=== PATIENT | male | born 1990 | race Caucasian/White ===

== ENCOUNTER → 2019-04-12 14:47 | Outpatient (CLI) | payer OTHER, SELFPAY ==
[2019-04-01 11:39] VITALS: BMI 32.6
--- NOTE | 2019-04-12 14:49 | ECHOD_ITS ---
Reason For Study: Murmur Procedure This was a 2D Doppler, Color Flow transthoracic echocardiogram. The exam was of adequate technical quality. Exam performed in department. Left Ventricle Normal LV size. Left ventricular systolic function is normal. The estimated ejection fraction is 65 %. No evidence for diastolic dysfunction. No regional wall motion abnormalities noted. Right Ventricle Normal RV size. Normal systolic function. Atria Normal left atrium. Normal right atrium. No doppler evidence for ASD. Mitral Valve There is no mitral annular calcification. Normal mitral valve. Trivial mitral valve insufficiency. Tricuspid Valve Normal tricuspid valve. Trivial tricuspid valve insufficiency. Aortic Valve Bicuspid aortic valve. Pulmonic Valve The pulmonic valve is not well visualized. Trivial pulmonic valve insufficiency. Great Vessels Mildly dilated aortic root. Pericardium/Pleural No pericardial effusion. MMode/2D Measurements & Calculations LVIDd: 4.8 cm IVSd: 1.0 cm LVOT diam: 2.3 cm LVIDs: 2.5 cm LVPWd: 1.1 cm LVOT area: 4.2 cm2 RVDd: 3.9 cm FS: 47.2 % Ao root diam: 4.4 cm LAV(MOD-bp): 64.0 ml LA A4 area: 20.1 cm2 LA dimension: 4.0 cm LAV(MOD-bp) Indexed: 25.5 ml/m2 LAV(MOD-sp2): 61.2 ml LAV(MOD-sp4): 53.5 ml RA A4 area: 20.5 cm2 Time Measurements MV dec time: 0.22 sec Doppler Measurements & Calculations MV E max gamaliel: 77.7 cm/sec Lat Peak E' Gamaliel: 16.5 cm/sec Med Peak E' Gamaliel: 10.6 cm/sec MV A max gamaliel: 53.7 cm/sec E/E' lat: 4.7 E/E' med: 7.3 MV E/A: 1.4 MV V2 max: 77.6 cm/sec MV P1/2t max gamaliel: 78.2 cm/sec Ao V2 max: 146.4 cm/sec MV max P.4 mmHg MV P1/2t: 60.6 msec Ao max P.6 mmHg MV V2 mean: 41.4 cm/sec MV dec slope: 377.9 cm/sec2 Ao V2 mean: 101.5 cm/sec MV mean P.81 mmHg Ao mean P.8 mmHg MV V2 VTI: 24.2 cm MVA(P1/2t): 3.6 cm2 Ao V2 VTI: 29.3 cm MVA(VTI): 3.6 cm2 LEONEL(I,D): 3.0 cm2 LEONEL(V,D): 3.1 cm2 LV V1 max: 105.7 cm/sec SV(LVOT): 88.0 ml PA V2 max: 109.8 cm/sec LV V1 max P.5 mmHg LV V1 mean P.1 mmHg LV V1 mean: 66.5 cm/sec LV V1 VTI: 20.8 cm Interpretation Summary Left ventricular systolic function is normal. The estimated ejection fraction is 65 %. Trivial mitral valve insufficiency. Trivial tricuspid valve insufficiency. Bicuspid aortic valve. Trivial pulmonic valve insufficiency. Mildly dilated aortic root. No evidence for diastolic dysfunction. Ordering Physician: Kirit Oliveros Referring Physician: Navneet Bernal Performed By: Tera Polo RCS
== END ==
PROVIDERS: Family Provider Family Medicine; PCP Family Medicine; Referring Provider Internal Medicine Cardiovascular Disease; Visit Provider Internal Medicine Cardiovascular Disease
DX: I71.2 Thoracic aortic aneurysm, without rupture (principal); Q23.1 Congenital insufficiency of aortic valve
CPT/HCPCS: 93306

== ENCOUNTER → 2019-09-17 15:34 | Outpatient (CLI) | payer OTHER, SELFPAY ==
[2019-04-01 11:39] VITALS: BMI 32.6
[2019-09-17 17:28] LABS: Hematocrit 49.8 % (40-54); Hemoglobin 16.9 g/dL (13.0-16.5); Mean Corp Hgb Conc 33.9 g/dL (32-36); Mean Corpuscular Hgb 29.4 pg (27.0-32.0); Mean Corpuscular Volume 86.6 fL (80-94); POSITIVE DIFFERENTIAL YES; Platelet Count 370 K/mm3 (150-450); RBC Distribution Width CV 12.7 % (11.6-14.6); RBC Distribution Width SD 39.8 fl (35.1-43.9); Red Blood Count 5.75 M/mm3 (4.6-6.2); White Blood Count 23.1 K/mm3 (4.4-11.0)
[2019-09-17 17:38] LABS: ALB/GLOB Ratio 1.1 RATIO (0.9-2.4); AST(SGOT) 23 U/L (15-37); Alanine Aminotransfer ALT/SGPT 49 U/L (16-61); Albumin, Serum 4.7 g/dL (3.2-5.0); Alkaline Phosphatase 87 U/L (45-117); Anion Gap 7 (5-15); BUN 14 mg/dL (7-18); BUN/Creat Ratio 12.5 RATIO (10-20); CRP 4.65 mg/L (0.0-3.0); Calcium,Total 9.5 mg/dL (8.5-10.1); Chloride 104 mmol/L (98-107); Creatinine, Serum 1.12 mg/dL (0.70-1.30); EST Glomerular Filtration Rate 83 mL/min (>60); Est Glom Filt Rate - Afr Amer 100 mL/min (>60); Globulin 4.3 g/dL (2.2-4.2); Glucose 80 mg/dL (74-106); Potassium 3.8 mmol/L (3.5-5.1); Sodium Level 137 mmol/L (136-145)
[2019-09-17 17:43] LABS: Erythrocyte Sedimentation Rate 12 mm/hr (0-15)
[2019-09-17 18:04] LABS: Differential Indicated MANUAL DIFF
[2019-09-17 18:05] LABS: Lymphocyte 15 % (19-41); Monocyte 5 % (0-10); Neutrophil-Band 1 % (0-5); Neutrophil-Segmented 79 % (47-70); Platelet Estimate ADEQUATE (ADEQ); Red Cell Morphology NORM C+C NORMAL (NORM C&C); Total Cells Counted 100 (MANUAL DIFF)
[2019-09-17 18:06] LABS: Absolute Lymphocyte Count 3.47 X10^3/uL (0.83-4.51); Absolute Neutrophil Count 18.5 X10^3/uL (2.0-7.7)
[2019-09-20 20:02] LABS: t-Transglutaminase IgA <2 U/mL (0-3)
== END ==
PROVIDERS: PCP Family Medicine; Referring Provider Family Medicine; Visit Provider Family Medicine
DX: K52.9 Noninfective gastroenteritis and colitis, unspecified (principal)
CPT/HCPCS: 36415; 80053; 83516; 85025; 85652; 86140

== ENCOUNTER → 2019-09-30 12:48 | Outpatient (CLI) | payer OTHER, SELFPAY ==
[2019-04-01 11:39] VITALS: BMI 32.6
== END ==
PROVIDERS: PCP Family Medicine; Referring Provider Surgery; Visit Provider Surgery
DX: R19.7 Diarrhea, unspecified (principal)
CPT/HCPCS: 82274; 83630; 87177; 87209; 87493; 87506

== ENCOUNTER → 2019-10-04 12:51 | Outpatient (CLI) | payer OTHER, SELFPAY ==
[2019-10-04 12:35] VITALS: BMI 32.8
[2019-10-04 13:39] LABS: Absolute Lymphocyte Count 4.14 X10^3/uL (0.83-4.51); Absolute Neutrophil Count 4.4 X10^3/uL (2.0-7.7); Basophil# 0.06 X10^3/uL; Basophil% 0.6 % (0-1); Eosinophil# 0.33 X10^3/uL; Eosinophils% 3.3 % (0-5); Hematocrit 48.5 % (40-54); Hemoglobin 16.2 g/dL (13.0-16.5); Lymphocyte # 4.14 X10^3/ul (4.0); Lymphocyte % 41.4 % (19-41); Mean Corp Hgb Conc 33.4 g/dL (32-36); Mean Corpuscular Hgb 29.1 pg (27.0-32.0); Mean Corpuscular Volume 87.1 fL (80-94); Mean Platelet Vol. 9.7 fl (6.2-12.0); NRBC Flagged by Analyzer 0 % (0-5); Neutrophil # 4.36 X10^3/uL (2.7-7.7); Neutrophil % 43.5 % (47-70); Platelet Count 333 K/mm3 (150-450); RBC Distribution Width CV 12.6 % (11.6-14.6); RBC Distribution Width SD 39.6 fl (35.1-43.9); Red Blood Count 5.57 M/mm3 (4.6-6.2)
== END ==
PROVIDERS: PCP Family Medicine; Referring Provider Surgery; Visit Provider Surgery
DX: D72.829 Elevated white blood cell count, unspecified (principal)
CPT/HCPCS: 36415; 85025

== ENCOUNTER 2019-10-07 05:31 | Day surgery (SDC) | payer OTHER, SELFPAY ==
[2019-10-04 12:35] VITALS: BMI 32.8
[2019-10-07] VITALS (7 sets, daily range): BP systolic 92–135; BP diastolic 62–100; PULSE 64–72; RESP 16; TEMP 36.6–36.7; O2SAT 95–100; BMI 32.2
--- NOTE | 2019-10-07 06:04 | PCM.HP.BLA ---
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 Don Chakraborty MD) Diarrhea (Acute) Thoracic aortic aneurysm without rupture (Chronic) Bicuspid aortic valve (Chronic) Diarrhea (Acute) Surgical History (Updated 10/04/19 @ 12:35 by Thelma Ruelas) History of adenoidectomy (Acute) History of tympanostomy tube placement (Resolved) Family History Grandfather Myocardial infarction Social History (Updated 10/04/19 @ 12:[address] Don Chakraborty MD) Smoking Status: Never smoker alcohol intake: never substance use type: does not use caffeine: Yes Type: carbonated beverages Number of servings: 4 HPI HPI HPI: HELENE BYRD, is a 29 M who presents to the office today for surgical consultation regarding intractable diarrhea. The patient is referred by Dr. Navneet Bernal written copy of my surgical consult recommendations will be returned to him. The patient forever is had somewhat irritable type bowels with rapid movement of stool after eating. Over the past month though it is been much more severe. He denies fever chills or sweats. He was thinking he might be gluten intolerant. Dr. Bernal did check laboratory which was not remarkable. On September 29 the patient also had stool analysis with no enteric pathogens. No fecal WBCs. C. difficile was negative. He has not been exposed anyone with Covid-19 who is knowledge. He has not noticed any bright red blood per rectum or melena. No unexpected weight loss. He does have a bicuspid aortic valve. Dr. Kirit Oliveros is currently caring for him with that. According to those notes he does not require antibiotic prophylaxis for interventions. As of September 17, 2019 his white blood cell count was 23.1 with a hemoglobin of 16.9 hematocrit 49.8 platelet count 3 and 70,000. 79% segs. ESR was 12. Liver function tests were normal. C-reactive protein was 4.65. There is no family history of colon polyps or colon cancer or Crohn's disease or ulcerative colitis. The patient has not had any abdominal pain. He has not had any unexpected weight loss. He has not had any previous abdominal surgery. 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[employer] [facility] HPI HPI HPI: HELENE BYRD, is a 29 M who presents to the office today for ROS General General: No weight change, appetite, fatigue, colon cancer, breast cancer or weakness HEENT HEENT: No difficulty swallowing, eye injury, eye surgery, swollen glands or hoarseness Endo Endocrine: No thyroid disease, diabetes mellitus, thyroid cancer, Hair loss, heat intolerance or cold intolerance Skin Skin: Yes rash; no changing moles Breast Breast: No left breast lump, right breast lump, nipple discharge, breast pain, abnormal mammogram, abnormal US or breast enlargement Musc Musculoskeletal: No back problems, arthritis, rheumatoid arthritis, gout or joint pain Cardio Cardiovascular: No murmur, pacemaker, heart disease, atrial fibrillation, high blood pressure, heart attack, heart stent, palpitations, shortness of breat with exertion or chest pain Additional Details: bicuspid aortic valve Psych Psychiatric: No depression, anxiety or hearing voices Resp Respiratory: No shortness of breath, No sleep apnea, No cough, No COPD, No asthma, No emphysema, No wheezing Gastro Gastrointestinal: No abdominal pain, No nausea or vomiting, Yes diarrhea, No constipation, No blood in stool, No acid reflux, No hemorrhoids, No ulcers, No gallbladder problem, No black,tarry stools Zechariah Hematologic: No blood thinners, No blood disorders, No bleeding, No anemia, No blood clots Neuro Neurologic: No system reviewed and no additional complaints, except as docu, No as per HPI, No abnormal walking, No abnormal hearing, No abnormal movements, No abnormal speech, No behavioral changes, No burning sensations, No confusion, No seizure-like activity, No unsteadiness, No dizziness, No localized weakness, No frequent falls, No headache(s), No lack of coordination, No loss of vision, No memory loss, No numbness, No other visual disturbances, No radiating pain, No restless legs, No sensory deficit, No fainting, No tingling, No tremor(s), No weakness, No other Exam Const General: cooperative, healthy appearing, comfortable, no acute distress Nutritional Appearance: obese Orientation: alert, awake, oriented x3 HENMT Head: normal to inspection Chest Breast Palpation: No nipple discharge Resp Effort & Inspection: normal respiratory effort Auscultation: clear to auscultation bilaterally Cardio Rate: regular rate Rhythm: regular rhythm Heart Sounds: no murmurs GI Palpation: soft, no hepatosplenomegaly Auscultation: normal bowel sounds Neuro Cognition: normal cognition Extrem General: no calf tenderness Psych Affect: normal affect Assessment & Plan Problems 1. Diarrhea, unspecified type R19.7 Plan Diarrhea of undetermined etiology Leukocytosis of undetermined etiology Celiac panel was negative I recommend a colonoscopy with possible biopsy or polypectomy as indicated. He has had an opportunity to ask and have questions answered. We will schedule and try to expedite his care. I would be in dissipating random colonic biopsies. We will try to intubate the ileocecal valve. If that is not determinant then might consider fecal fat analysis for possible pancreatic insufficiency; might additionally consider fasting gastrin level and urine 5 HIAA and VIP and Chromagen A levels He is on an opportunity to ask and have questions answered. He is aware that we are during the Covid-19 pandemic. He is aware that the [facility] is currently reporting a low local incidence. We will schedule and expedite. I appreciate the opportunity of assisting with his surgical care. Cc: Dr. Navneet Chakraborty M.D., F.A.C.S. Orders Orders: Colonoscopy Today Ova and Parasites [id number] 09/30/19 R19.7 CDIFF (Molecular) 09/30/19 R19.7 ENTERIC PATHOGEN PANEL STOOL 09/30/19 R19.7 Stool Occult Blood iFOB 09/30/19 R19.7 Stool Lactoferrin/WBC 09/30/19 R19.7 CBC W/Diff, Automated Today D72.829 Coding Level of Care Code 82027 Diagnoses Diarrhea, unspecified type R19.7 ??Diarrhea type: unspecified type 10/04/19 1250 <Electronically signed by Don Chakraborty MD> Date Don Chakraborty MD I have re-examined the patient. There are no clinical changes since date of exam. Stool analysis panel all negative for enteric pathogens. His peripheral CBC demonstrates normalization of his white blood cell count. Don Chakraborty M.D., F.A.C.S. Procedure Criteria Procedure Type: Elective COVID Risk Discussion: The surgeon/proceduralist and patient have discussed in detail the risk of exposure to and/or potential harm posed by the COVID-19 virus with having a surgery/procedure at this time versus the risk of delaying the surgery/procedure. It is not possible to know either the risk of delaying the surgery or procedure or chance of getting an infection with perfect accuracy, but a joint decision was made between the patient and the surgeon/proceduralist to proceed at this time with the scheduled surgery/procedure as indicated on the consent form.
[2019-10-07] MEDS: Lactated Ringers 1,000 ML 100 ML IV (06:11)
--- NOTE | 2019-10-07 06:30 | COLBX_PTH ---
PATIENT: HELENE BYRD LOC: EN U#:[id number] AGE/SX: 29/M ROOM: RE10/07/[address]: Dr. Don Chakraborty MD : 1990 BED: DIS: 10/07/2019 SPEC #: [id number] RECD: 10/07/19 10:14 STATUS: JET BISMARK #: [id number] ALFREDITO: 10/07/19 06:[address]: Don Chakraborty DEPT: SURGICAL PATHOLOGY RECD BY: Kenna Shen ENTERED: 10/07/19 10:24 SP TYPE: COLON BX ANKIT DR: Dr. Navneet Bernal MD Tissues: A - COLON BIOPSY B - Descending colon Procedures: Surgery Specimen Level IV HEADER OPERATION: Colonoscopy (MOD) PRE-OP DIAGNOSIS: Diarrhea TISSUE SUBMITTED: A - Random colon biopsies, B - Descending colon polyp MICROSCOPIC DIAGNOSIS A. Colon, random biopsy: Focal recent mucosal hemorrhage. No evidence of colitis. B. Descending colon polyp, biopsy: Tubular adenoma. AM:dale 10/08/19 MICROSCOPIC DESCRIPTION Slides are reviewed. GROSS DESCRIPTION A - Received in fixative is one container labeled with the patient's name and designated random colon biopsy. The specimen consists of multiple irregular fragments of light pastrana soft tissue that in aggregate measure 1.5 x 0.5 x 0.1 cm. The specimen is totally submitted in one cassette. B - Received in fixative is one container labeled with the patient's name and designated descending colon polyp. The specimen consists of a piece of pastrana-pink polyp measuring 0.6 x 0.6 x 0.3 cm. The specimen is totally submitted in one cassette. / SJ:dale 10/07/19 TC:5 CPT: 68868 x2
--- NOTE | 2019-10-07 07:15 | OP.COLON_ITS ---
Patient Name: Bruce Olvera Procedure Date: 10/07/2019 6:03 AM Date of : 1990 Age: 29 Procedure: Colonoscopy Indications: Clinically significant diarrhea of unexplained origin Providers: Don Chakraborty MD Referring MD: Navneet Bernal Md Medicines: Midazolam 7 mg IV, Meperidine 150 mg IV, Diphenhydramine 25 mg IV Patient Profile: Last Colonoscopy: none. The patient's first colonoscopy is today. Complications: No immediate complications. Procedure: Pre-Anesthesia Assessment: - Prior to the procedure, a History and Physical was performed, and patient medications and allergies were reviewed. The patient's tolerance of previous anesthesia was also reviewed. The risks and benefits of the procedure and the sedation options and risks were discussed with the patient. All questions were answered, and informed consent was obtained. Prior Anticoagulants: The patient has taken no previous anticoagulant or antiplatelet agents. ASA Grade Assessment: II - A patient with mild systemic disease. After reviewing the risks and benefits, the patient was deemed in satisfactory condition to undergo the procedure. After I obtained informed consent, the scope was passed under direct vision. Throughout the procedure, the patient's blood pressure, pulse, and oxygen saturations were monitored continuously. The pediatric colonoscope was introduced through the anus and advanced to the cecum, identified by appendiceal orifice and ileocecal valve. The colonoscopy was performed without difficulty. The patient tolerated the procedure well. The quality of the bowel preparation was good. The ileocecal valve and the appendiceal orifice were photographed. Demerol 100mg and versed 4mg given via IV which seemed the to infiltrate. New IV placed and demerol 50mg and versed 3mg and benadryl 25mg given through new IV Moderate Sedation: Moderate (conscious) sedation was administered by the endoscopy nurse and supervised by the endoscopist. The following parameters were monitored: oxygen saturation, heart rate, blood pressure, and response to care. Total physician intraservice time was 15 minutes. Scope In: 6:43:22 AM Scope Withdrawal Time 0 hours 15 minutes 38 seconds Scope Out: 7:03:21 AM Total Procedure Duration Time 0 hours 19 minutes 59 seconds Findings: Hemorrhoids were found on perianal exam. Prostate normal A 8 mm polyp was found in the proximal descending colon. The polyp was semi-pedunculated. The polyp was removed with a hot snare. Resection and retrieval were complete. The colon (entire examined portion) appeared normal. Biopsies for histology were taken with a cold forceps from the entire colon for evaluation of microscopic colitis. An attempt was made to intubate the ileocecal valve but despite multiple attempts the acute angulation and closed valve prevented this. Cecum very well visualized and completely normal. Impression: - Hemorrhoids found on perianal exam. - One 8 mm polyp in the proximal descending colon, removed with a hot snare. Resected and retrieved. - The entire examined colon is normal. Biopsied. Recommendation: - Discharge patient to home. - Resume previous diet. - Continue present medications. - Repeat colonoscopy in 5 years for surveillance. - Telephone my office for pathology results in 1 week. Procedure Code(s): --- Professional --- 80900, Colonoscopy, flexible; with removal of tumor(s), polyp(s), or other lesion(s) by snare technique 60118, 59, Colonoscopy, flexible; with biopsy, single or multiple 68869, 59, Moderate sedation services provided by the same physician or other qualified health residential care facility manager performing the diagnostic or therapeutic service that the sedation supports, requiring the presence of an independent trained observer to assist in the monitoring of the patient's level of consciousness and physiological status; initial 15 minutes of intraservice time, patient age 5 years or older Diagnosis Code(s): --- Professional --- K64.9, Unspecified hemorrhoids D12.4, Benign neoplasm of descending colon R19.7, Diarrhea, unspecified CPT copyright 2017 [employer]. All rights reserved. The codes documented in this report are preliminary and upon drop count associate review may be revised to meet current compliance requirements. Don Chakraborty MD 10/07/2019 7:14:54 AM This report has been signed electronically. Number of Addenda: 0 Note Initiated On: 10/07/2019 6:03 AM
--- NOTE | 2019-10-07 07:15 | OP.CCLET_ITS ---
10/07/2019 Navneet Bernal Md Re : Colonoscopy procedure for Bruce Olvera Dear Dolores This procedure was performed on September. My impressions and recommendations are as follows: Impressions : - Hemorrhoids found on perianal exam. - One 8 mm polyp in the proximal descending colon, removed with a hot snare. Resected and retrieved. - The entire examined colon is normal. Biopsied. Recommendations : - Discharge patient to home. - Resume previous diet. - Continue present medications. - Repeat colonoscopy in 5 years for surveillance. - Telephone my office for pathology results in 1 week. My findings are described in the full procedure note, which is enclosed. If I can be of further assistance, please feel free to contact me at Doctor phone number(s): Work: . Sincerely, Don Chakraborty MD 10/07/2019 7:14:54 AM This report has been signed electronically.
== END 2019-10-07 07:50 | disposition home or self-care (01) ==
LOC: EN 05:32 → AC 05:33
PROVIDERS: Anesthesiology; PCP Family Medicine; Referring Provider Family Medicine; Visit Provider Surgery
PROC: 0DJD8ZZ Inspection of Lower Intestinal Tract, Via Natural or Artificial Opening Endoscopic (ICD-10-PCS; CPT 45378; principal; 2019-10-07 06:25)
DX: K52.9 Noninfective gastroenteritis and colitis, unspecified (principal); Z11.59 Encounter for screening for other viral diseases; D12.4 Benign neoplasm of descending colon; K64.9 Unspecified hemorrhoids; Q23.1 Congenital insufficiency of aortic valve
CPT/HCPCS: 45380; 45385; 87635; 88305; 99152; 99153; G2023; J7120; U0003

== ENCOUNTER → 2020-04-11 13:50 | Outpatient (CLI) | payer OTHER, SELFPAY ==
[2020-04-05 15:04] VITALS: BMI 32.5
--- NOTE | 2020-04-11 13:52 | US_ITS ---
STUDY: SCROTUM ULTRASOUND REASON FOR EXAM: Male, 29 years old. LEFT TESTICULAR DISCOMFORT 1-2 WEEKS TECHNIQUE: Ultrasound evaluation of the scrotum was performed with color Doppler and static skinner-scale imaging. COMPARISON: None. FINDINGS: RIGHT TESTICLE INTRATESTICULAR: There is a normal size of the right testicle. The right testicle measures 4.4 x 2.8 x 2.3 cm. There is a homogenous echotexture. There is normal arterial and normal venous vascularity. There is no demonstrated right testicular mass or cyst. EXTRATESTICULAR: The epididymis is normal in size. The epididymis head measures 0.9 x 1.8 x 1.1 cm. There is normal vascularity of the epididymis. There is a well-defined cystic structure within the epididymis, without internal echoes, consistent with an epididymal cyst. There is no demonstrated hydrocele. There is no demonstrated varicocele. There is no demonstrated extratesticular mass or cyst. LEFT TESTICLE INTRATESTICULAR: There is a normal size of the left testicle. The left testicle measures 4.4 x 2.9 x 2.4 cm. There is a homogenous echotexture. There is normal arterial and normal venous vascularity. There is no demonstrated left testicular mass or cyst. EXTRATESTICULAR: The epididymis is normal in size. The epididymis head measures 1.1 x 1.6 x 1.1 cm. There is normal vascularity of the epididymis. There is no demonstrated epididymal cystic structure. There is no demonstrated hydrocele. There is no demonstrated varicocele. There is no demonstrated extratesticular mass or cyst. US/Testicular with Arterial Flow IMPRESSION: Normal bilateral testicles. Electronically Signed: Bernabe Silva MD at 16:48 EST Tel , Service support ,
== END ==
PROVIDERS: PCP Family Medicine; Visit Provider Family Medicine
DX: N50.812 Left testicular pain (principal)
CPT/HCPCS: 76870; 93976

== ENCOUNTER → 2020-04-14 13:42 | Outpatient (CLI) | payer OTHER, SELFPAY ==
[2020-04-05 15:04] VITALS: BMI 32.5
--- NOTE | 2020-04-14 13:44 | ECHOD_ITS ---
Reason For Study: CONGENITAL HEART DISEASE Procedure This was a 2D Doppler, Color Flow transthoracic echocardiogram. Exam performed in department. Left Ventricle Normal LV size. Left ventricular systolic function is normal. The estimated ejection fraction is 65 %. No evidence for diastolic dysfunction. No regional wall motion abnormalities noted. Right Ventricle Normal RV size. Normal systolic function. Atria Normal left atrium. Normal right atrium. No doppler evidence for ASD. Mitral Valve There is no mitral annular calcification. Normal mitral valve. Trivial mitral valve insufficiency. Tricuspid Valve Normal tricuspid valve. Trivial tricuspid valve insufficiency. Aortic Valve Bicuspid aortic valve. Pulmonic Valve The pulmonic valve is not well visualized. Trivial pulmonic valve insufficiency. Great Vessels Mildly dilated aortic root. Pericardium/Pleural No pericardial effusion. MMode/2D Measurements & Calculations LVIDd: 5.1 cm IVSd: 1.0 cm LVOT diam: 2.3 cm LVIDs: 2.9 cm LVPWd: 1.0 cm LVOT area: 4.3 cm2 RVDd: 3.3 cm FS: 42.5 % Ao root diam: 4.5 cm LAV(MOD-bp): 48.8 ml LA A4 area: 17.8 cm2 LAV(MOD-bp) Indexed: 19.5 ml/m2 LAV(MOD-sp2): 51.8 ml LAV(MOD-sp4): 43.1 ml LA dimension(2D): 3.9 cm RA A4 area: 18.7 cm2 Time Measurements MV dec time: 0.18 sec Doppler Measurements & Calculations MV E max gamaliel: 72.0 cm/sec Lat Peak E' Gamaliel: 18.8 cm/sec Med Peak E' Gamaliel: 11.4 cm/sec MV A max gamaliel: 64.7 cm/sec E/E' lat: 3.8 E/E' med: 6.3 MV E/A: 1.1 Ao V2 max: 132.4 cm/sec LV V1 max: 94.3 cm/sec SV(LVOT): 82.8 ml Ao max P.0 mmHg LV V1 max P.6 mmHg Ao V2 mean: 93.6 cm/sec LV V1 mean P.8 mmHg Ao mean P.9 mmHg LV V1 mean: 63.2 cm/sec Ao V2 VTI: 25.9 cm LV V1 VTI: 19.2 cm LEONEL(I,D): 3.2 cm2 LEONEL(V,D): 3.1 cm2 PA V2 max: 108.3 cm/sec Interpretation Summary Left ventricular systolic function is normal. The estimated ejection fraction is 65 %. Trivial mitral valve insufficiency. Trivial tricuspid valve insufficiency. Bicuspid aortic valve. Trivial pulmonic valve insufficiency. Mildly dilated aortic root. No evidence for diastolic dysfunction. Ordering Physician: Kirit Oliveros Referring Physician: Navneet Bernal Performed By: Thelma Chandler, REHANA, RVT
== END ==
PROVIDERS: PCP Family Medicine; Referring Provider Internal Medicine Cardiovascular Disease; Visit Provider Internal Medicine Cardiovascular Disease
DX: Q23.1 Congenital insufficiency of aortic valve (principal); I71.2 Thoracic aortic aneurysm, without rupture
CPT/HCPCS: 93306

== ENCOUNTER 2021-06-29 13:10 | Emergency (ER) | payer OTHER, SELFPAY ==
[2021-06-29 13:13] VITALS: BP 140/93; PULSE 96; RESP 16; TEMP 36.4; O2SAT 97; BMI 32.5
--- NOTE | 2021-06-29 13:14 | NURSING ---
NO OLD EKGS
--- NOTE | 2021-06-29 13:20 | EKG12_ITS ---
Test Reason : SYNCOPE Blood Pressure : / mmHG Vent. Rate : 091 BPM Atrial Rate : 091 BPM P-R Int : 178 ms QRS Dur : 092 ms QT Int : 338 ms P-R-T Axes : 030 012 008 degrees QTc Int : 415 ms Normal sinus rhythm Normal ECG Confirmed by TAE KAPOOR, MARITO ([id number]), supervising film or videotape editor MAXIM FERRIS ([id number]) on 07/04/2021 10:40:33 AM Referred By: SUSI Confirmed By:MARITO STRONG MD
--- NOTE | 2021-06-29 13:25 | EDS_ITS ---
HPI <ESTEBAN Tavera - Last Filed: 06/29/21 16:00> History of Present Illness Chief Complaint: Syncope Narrative Narrative: 30-year-old male with history of bicuspid aortic valve, presents to the emergency department after a syncopal episode, altered mental status. Patient does have what his would call fuzzy head after he gets up from sleep. It takes him time to get a bearing on his surroundings as well as remember what is happening. Per his , the patient was standing today, had an immediate syncopal episode, he was altered, not knowing who she was, patient now is alert and oriented however he does not remember what happened, he does not remember yesterday and states that he is still feeling fuzzy in his head. Patient denies any chest pain nausea vomiting. Patient denies any dizziness prior. Denies any recent illnesses, fever chills nausea vomiting. Patient does get echocardiograms every year, recently had a normal echocardiogram. Patient's last cardiac exam was in March 2021. [facility] <ESTEBAN Tavera - Last Filed: 06/29/21 16:00> [facility] Medical History (Updated 06/29/21 @ 16:00 by ESTEBAN Tavera) Bicuspid aortic valve Diarrhea Diarrhea Thoracic aortic aneurysm without rupture Home Medications NK 03/29/19 [History Last Taken Unknown] Allergy/AdvReac Type Severity Reaction Status Date / Time No Known Allergies Allergy Verified 06/29/21 13:13 Family History Grandfather Myocardial infarction Surgical History History of adenoidectomy History of tympanostomy tube placement Social History Smoking Status: Never smoker alcohol intake: never substance use type: does not use caffeine: Yes Type: carbonated beverages Number of servings: 4 ROS <ESTEBAN Tavera - Last Filed: 06/29/21 16:00> ROS ED ROS Narrative Constitutional: Negative for fever, chills, weight loss, weakness Eyes: Negative for vision loss, vision change, double vision ENT: Negative for any sore throat, ear pain, congestion Cardiovascular: Negative for any chest pain, tightness, palpitations, racing heartbeat Respiratory: Negative for any cough, sputum production, hemoptysis, shortness of breath, shortness of breath on exertion, orthopnea Gastrointestinal: Negative for any abdominal pain, nausea, vomiting, diarrhea, constipation, blood in stool, blood in vomit : Negative for any urinary frequency, incontinence, dysuria, retention, blood in urine Muscle skeletal: Negative for any muscle joint pain, stiffness, myalgias, arthralgias, neck pain, back pain Neurological: Negative for any headache, dizziness, numbness or tingling. Positive for syncope, altered mental status Skin: Negative for any rashes, lumps, itching, abrasions, lacerations Psychiatric: Negative for any depression, anxiety, stress, suicidal ideation, homicidal ideation Hematologic: Negative for any easy bruising, excessive bruising, easy bleeding Allergies: Negative for any eczema, hives, rash EXAM <ESTEBAN Tavera - Last Filed: 06/29/21 16:00> Physical Exam Narrative Exam Narrative: Vital signs reviewed. Patient is alert and oriented x4, patient does not recall yesterday, patient recalls only vague memories of this morning. Patient continues to look at his after discussing different facts. Patient denies any pain. HEET: Head normocephalic atraumatic, TMs clear bilaterally. Posterior pharynx is clear, moist mucous membranes. Nares clear bilaterally. Neck: Supple with no lymphadenopathy or tenderness. No signs of meningismus, negative jolt sign. Cardiac: Regular rate and rhythm no murmurs gallops or rubs, equal peripheral pulses bilaterally. Respiratory: Lungs clear to auscultation bilaterally. No chest tenderness. Abdomen: Soft, nontender, nondistended. No abdominal bruit or pulsatile masses. No hepatosplenomegaly Extremities: No peripheral edema, no signs of gross trauma or deformity. Active full range of motion of all extremities. Neuro: Cranial nerves II through XII intact, no focal neurological deficits. Skin: Clean dry and intact with no rash, purpura, petechiae, vesicles or pustules. Backslash flank: No CVA tenderness, no midline spinal tenderness, no deformity. Psych: Normal mood and affect. No SI, HI or acute psychosis. Const Vital Signs: 06/29/21 13:13 06/29/21 13:19 06/29/21 13:44 Temperature 97.5 F L Temperature Source Oral Pulse Rate 96 Pulse Rate [Lying] 91 Pulse Rate [Sitting (for 1 minute prior to obtaining)] 88 Pulse Rate [Standing (for 1 minute prior to obtaining)] 90 Respiratory Rate 16 Respiratory Effort Normal Non-Labored Respiratory Pattern Normal Blood Pressure 140/93 H Blood Pressure [Lying] 133/91 H Blood Pressure [Sitting (for 1 minute prior to obtaining)] 138/89 H Blood Pressure [Standing (for 1 minute prior to obtaining)] 144/88 H Blood Pressure Mean 108 Blood Pressure Mean [Lying] 105 Blood Pressure Mean [Sitting (for 1 minute prior to obtaining)] 105 Blood Pressure Mean [Standing (for 1 minute prior to obtaining)] 106 Pulse Ox 97 Oxygen Delivery Method Room Air 06/29/21 14:36 06/29/21 16:20 06/29/21 16:24 Temperature Temperature Source Pulse Rate 79 88 72 Pulse Rate [Lying] Pulse Rate [Sitting (for 1 minute prior to obtaining)] Pulse Rate [Standing (for 1 minute prior to obtaining)] Respiratory Rate 22 H 15 16 Respiratory Effort Respiratory Pattern Blood Pressure 135/78 H 116/77 116/77 Blood Pressure [Lying] Blood Pressure [Sitting (for 1 minute prior to obtaining)] Blood Pressure [Standing (for 1 minute prior to obtaining)] Blood Pressure Mean 97 90 Blood Pressure Mean [Lying] Blood Pressure Mean [Sitting (for 1 minute prior to obtaining)] Blood Pressure Mean [Standing (for 1 minute prior to obtaining)] Pulse Ox 95 95 98 Oxygen Delivery Method Room Air Room Air Positive well nourished and well developed General Appearance ED: well developed <Dr. Kirit Rendon MD - Last Filed: 06/29/21 18:12> Physical Exam Const Vital Signs: 06/29/21 13:13 06/29/21 13:19 06/29/21 13:44 Temperature 97.5 F L Temperature Source Oral Pulse Rate 96 Pulse Rate [Lying] 91 Pulse Rate [Sitting (for 1 minute prior to obtaining)] 88 Pulse Rate [Standing (for 1 minute prior to obtaining)] 90 Respiratory Rate 16 Respiratory Effort Normal Non-Labored Respiratory Pattern Normal Blood Pressure 140/93 H Blood Pressure [Lying] 133/91 H Blood Pressure [Sitting (for 1 minute prior to obtaining)] 138/89 H Blood Pressure [Standing (for 1 minute prior to obtaining)] 144/88 H Blood Pressure Mean 108 Blood Pressure Mean [Lying] 105 Blood Pressure Mean [Sitting (for 1 minute prior to obtaining)] 105 Blood Pressure Mean [Standing (for 1 minute prior to obtaining)] 106 Pulse Ox 97 Oxygen Delivery Method Room Air 06/29/21 14:36 06/29/21 16:20 06/29/21 16:24 Temperature Temperature Source Pulse Rate 79 88 72 Pulse Rate [Lying] Pulse Rate [Sitting (for 1 minute prior to obtaining)] Pulse Rate [Standing (for 1 minute prior to obtaining)] Respiratory Rate 22 H 15 16 Respiratory Effort Respiratory Pattern Blood Pressure 135/78 H 116/77 116/77 Blood Pressure [Lying] Blood Pressure [Sitting (for 1 minute prior to obtaining)] Blood Pressure [Standing (for 1 minute prior to obtaining)] Blood Pressure Mean 97 90 Blood Pressure Mean [Lying] Blood Pressure Mean [Sitting (for 1 minute prior to obtaining)] Blood Pressure Mean [Standing (for 1 minute prior to obtaining)] Pulse Ox 95 95 98 Oxygen Delivery Method Room Air Room Air [facility] <ESTEBAN Tavera - Last Filed: 06/29/21 16:00> [facility] Narrative Medical decision making narrative: Patient appears well, patient appears nontoxic, vital signs are stable. Initial exam, patient was slightly confused however he was alert and oriented and following directions. Patient did receive a full cardiac work-up secondary to his syncope as well as his history of bicuspid valve. Patient's CBC she showed a slight leukocytosis white blood count of 13.4, patient chemistries were unremarkable, patient's troponin was negative, patient had a negative D-dimer. Patient's EKG was unremarkable. Patient received a CT of the brain was unremarkable, chest x-ray single view read by the ER physician shows no acute process. Patient did have negative orthostatic vital signs. Patient felt much better after IV fluids. Patient's urinalysis was negative for infection however did show ketones, patient did start a new cardio workout today, patient could be slightly dehydrated. Overall patient has a negative cardiac exam. On reassessment, patient is continually doing well, I did speak with the patient's cardiology office, we recommend a 48-hour Holter monitor, patient will follow closely with his principal embedded software engineer. Patient is happy with the plan of care and instructed return for any other syncopal episodes, chest pain, nausea vomiting. Patient stable for discharge Lab Data Attestation: I reviewed the patient's lab results. Labs: Laboratory Results - last 24 hr 06/29/21 06/29/21 06/29/21 13:30 13:30 13:30 WBC 13.4 H RBC 5.25 Hgb 15.1 Hct 43.6 MCV 83.0 MCH 28.8 MCHC 34.6 RDW Std Deviation 38.9 RDW Coeff of Edward 12.9 Plt Count 356 MPV 9.5 Immature Gran % (Auto) 0.400 Neut % (Auto) 59.7 Lymph % (Auto) 30.1 [place] % (Auto) 8.7 Eos % (Auto) 0.7 Baso % (Auto) 0.4 Absolute Neuts (auto) 8.0 H Absolute Lymphs (auto) 4.03 Nucleated RBC % 0 D-Dimer Quant (PE/DVT) < 0.27 L Sodium 136 Potassium 4.1 Chloride 104 Carbon Dioxide 27.0 Anion Gap 5 BUN 18 Creatinine 1.11 Estim Creat Clear Calc 117.36 Est GFR (MDRD) Af Amer 100 Est GFR (MDRD) Non-Af 83 BUN/Creatinine Ratio 16.2 Glucose 91 Calcium 9.3 Troponin I High Sens 5 Urine Color Urine Clarity Urine pH Ur Specific Goode Urine Protein Urine Glucose (UA) Urine Ketones Urine Occult Blood Urine Nitrite Urine Bilirubin Urine Urobilinogen Ur Leukocyte Esterase Urine RBC Urine WBC Ur Squamous Epith Cells Urine Bacteria Urine Mucus 06/29/21 14:23 WBC RBC Hgb Hct MCV MCH MCHC RDW Std Deviation RDW Coeff of Edward Plt Count MPV Immature Gran % (Auto) Neut % (Auto) Lymph % (Auto) [place] % (Auto) Eos % (Auto) Baso % (Auto) Absolute Neuts (auto) Absolute Lymphs (auto) Nucleated RBC % D-Dimer Quant (PE/DVT) Sodium Potassium Chloride Carbon Dioxide Anion Gap BUN Creatinine Estim Creat Clear Calc Est GFR (MDRD) Af Amer Est GFR (MDRD) Non-Af BUN/Creatinine Ratio Glucose Calcium Troponin I High Sens Urine Color Yellow Urine Clarity Clear Urine pH 6.0 Ur Specific Goode 1.015 Urine Protein Negative Urine Glucose (UA) Normal Urine Ketones 50 H Urine Occult Blood Negative Urine Nitrite Negative Urine Bilirubin Negative Urine Urobilinogen Normal Ur Leukocyte Esterase Negative Urine RBC 0 SEEN Urine WBC 0 SEEN Ur Squamous Epith Cells 0 SEEN Urine Bacteria 0 SEEN Urine Mucus 0 SEEN Radiography Chest X-Ray - ED: 1 View Diagnostic Testing: Clinical Impression(s) from Imaging Studies Chest X-Ray 06/29/21 13:30 IMPRESSION: Normal x-ray examination of the chest. Electronically Signed: Dhaval Gonzalez MD at 13:45 EDT , Brain CT 06/29/21 13:35 IMPRESSION: Normal unenhanced CT scan of the brain. Electronically Signed: Dhaval Gonzalez MD at 13:47 EDT , EKG Normal sinus rhythm: Attestation: I personally reviewed and interpreted this EKG as follows: Comments: Normal sinus rhythm, rate of 91 bpm, AK interval 178 ms, QRS duration 92 ms, no acute ST elevation, no acute infarct noted. Prior EKG tracings: available for review <Dr. Kirit Rendon MD - Last Filed: 06/29/21 18:12> [facility] MDM Narrative Medical decision making narrative: I have personally performed a face to face assessment of the patient and have reviewed the BERT Note. I performed a substantive portion of the visit including all aspects of the following. My jones findings include: Patient appears well, he was seen by me for syncopal episode, his witnessed the episode did seem like a brief loss of consciousness with relatively rapid for recovery. No seizure activity. There is a normal work-up, he will be set up with a Holter monitor and discharged. He had a a recent echo which was unremarkable other than the bicuspid valve. We talked to cardiology and he will be discharged in stable condition Lab Data Labs: Laboratory Results - last 24 hr 06/29/21 06/29/21 06/29/21 13:30 13:30 13:30 WBC 13.4 H RBC 5.25 Hgb 15.1 Hct 43.6 MCV 83.0 MCH 28.8 MCHC 34.6 RDW Std Deviation 38.9 RDW Coeff of Edward 12.9 Plt Count 356 MPV 9.5 Immature Gran % (Auto) 0.400 Neut % (Auto) 59.7 Lymph % (Auto) 30.1 [place] % (Auto) 8.7 Eos % (Auto) 0.7 Baso % (Auto) 0.4 Absolute Neuts (auto) 8.0 H Absolute Lymphs (auto) 4.03 Nucleated RBC % 0 D-Dimer Quant (PE/DVT) < 0.27 L Sodium 136 Potassium 4.1 Chloride 104 Carbon Dioxide 27.0 Anion Gap 5 BUN 18 Creatinine 1.11 Estim Creat Clear Calc 117.36 Est GFR (MDRD) Af Amer 100 Est GFR (MDRD) Non-Af 83 BUN/Creatinine Ratio 16.2 Glucose 91 Calcium 9.3 Troponin I High Sens 5 Urine Color Urine Clarity Urine pH Ur Specific Goode Urine Protein Urine Glucose (UA) Urine Ketones Urine Occult Blood Urine Nitrite Urine Bilirubin Urine Urobilinogen Ur Leukocyte Esterase Urine RBC Urine WBC Ur Squamous Epith Cells Urine Bacteria Urine Mucus 06/29/21 14:23 WBC RBC Hgb Hct MCV MCH MCHC RDW Std Deviation RDW Coeff of Deward Plt Count MPV Immature Gran % (Auto) Neut % (Auto) Lymph % (Auto) [place] % (Auto) Eos % (Auto) Baso % (Auto) Absolute Neuts (auto) Absolute Lymphs (auto) Nucleated RBC % D-Dimer Quant (PE/DVT) Sodium Potassium Chloride Carbon Dioxide Anion Gap BUN Creatinine Estim Creat Clear Calc Est GFR (MDRD) Af Amer Est GFR (MDRD) Non-Af BUN/Creatinine Ratio Glucose Calcium Troponin I High Sens Urine Color Yellow Urine Clarity Clear Urine pH 6.0 Ur Specific Goode 1.015 Urine Protein Negative Urine Glucose (UA) Normal Urine Ketones 50 H Urine Occult Blood Negative Urine Nitrite Negative Urine Bilirubin Negative Urine Urobilinogen Normal Ur Leukocyte Esterase Negative Urine RBC 0 SEEN Urine WBC 0 SEEN Ur Squamous Epith Cells 0 SEEN Urine Bacteria 0 SEEN Urine Mucus 0 SEEN Radiography Diagnostic Testing: Clinical Impression(s) from Imaging Studies Chest X-Ray 06/29/21 13:30 IMPRESSION: Normal x-ray examination of the chest. Electronically Signed: Dhaval Gonzalez MD at 13:45 EDT , Brain CT 06/29/21 13:35 IMPRESSION: Normal unenhanced CT scan of the brain. Electronically Signed: Dhaval Gonzalez MD at 13:47 EDT , Discharge Plan Triage Chief Complaint: Syncope ED Midlevel Provider: Kirit Donald ED Provider: Kirit Rendon Dx/Rx/DC Orders Clinical Impression: Dehydration, Syncope Instructions: Causes of Syncope, ED Dehydration (Adult) Prescriptions: No Action NK RF: 0 Primary Care Provider: Care Physician,No Primary Referrals: Kirit Oliveros MD [STAFF PHYSICIAN] - Care Physician,No Primary [Primary Care Provider] - Activity Restrictions/Additional Instructions: Please use the Holter monitor, please follow-up with your principal embedded software engineer. Please return here for any other syncopal episodes, chest pain. Print Language: Ugandan Disposition Disposition: Home, Self Care Discharge Date/Time: 06/29/21 16:43
[2021-06-29] MEDS: 0.9% Normal Saline 1,000 ML 1000 ML IV (13:28)
--- NOTE | 2021-06-29 13:30 | RAD_ITS ---
STUDY: X-RAY CHEST REASON FOR EXAM: Male, 30 years old. Syncope TECHNIQUE: Single AP portable view of the chest. COMPARISON: None. FINDINGS: EKG electrodes are seen. The lungs are clear and expanded. There is no demonstrated pleural abnormality. Normal size heart. Normal mediastinum and malachi. Normal visualized pulmonary arteries. Normal visualized aortic arch and descending thoracic aorta. Normal visualized thoracic spine. Normal visualized ribs, clavicles, and shoulders. There is no demonstrated abnormality of the visualized soft tissue structures of the upper abdomen. RAD/Chest 1 View (Portable) IMPRESSION: Normal x-ray examination of the chest. Electronically Signed: Dhaval Gonzalez MD at 13:45 EDT ,
--- NOTE | 2021-06-29 13:35 | CT_ITS ---
STUDY: CT BRAIN WITHOUT CONTRAST REASON FOR EXAM: Male, 30 years old. Syncope RADIATION DOSAGE (If Supplied By Facility): CTDIvol = ( 47.06 ) mGy, DLP = ( 925.62 ) mGycm TECHNIQUE: Transaxial CT imaging of the brain was performed without administration of intravenous contrast material. Individualized dose optimization techniques were used for this CT. COMPARISON: No relevant priors. FINDINGS: Normal soft tissue structures. Normal calvarium. Normal size ventricles and extra-axial spaces for the patient''s age. Normal white matter tracts of the cerebral hemispheres. Normal basal ganglia and thalami. Normal brainstem. Normal cerebellum. There is no intracranial hemorrhage. There are no findings of an acute ischemic infarction. Normal visualized paranasal sinuses. CT/Brain/Head without Contrast IMPRESSION: Normal unenhanced CT scan of the brain. Electronically Signed: Dhaval Gonzalez MD at 13:47 EDT ,
[2021-06-29 13:39] LABS: Absolute Lymphocyte Count 4.03 X10^3/uL (0.83-4.51); Basophil# 0.05 X10^3/uL; Basophil% 0.4 % (0-1); Eosinophil# 0.09 X10^3/uL; Eosinophils% 0.7 % (0-5); Hematocrit 43.6 % (40-54); Hemoglobin 15.1 g/dL (13.0-16.5); Lymphocyte # 4.03 X10^3/ul (0.83-4.51); Lymphocyte % 30.1 % (19-41); Mean Corp Hgb Conc 34.6 g/dL (32-36); Mean Corpuscular Hgb 28.8 pg (27.0-32.0); Mean Platelet Vol. 9.5 fl (6.2-12.0); Monocyte# 1.17 X10^3/uL; Monocyte% 8.7 % (0-10); NRBC Flagged by Analyzer 0 % (0-5); Neutrophil # 8.02 X10^3/uL (2.7-7.7); Neutrophil % 59.7 % (47-70); Platelet Count 356 K/mm3 (150-450); RBC Distribution Width CV 12.9 % (11.6-14.6); RBC Distribution Width SD 38.9 fl (35.1-43.9); Red Blood Count 5.25 M/mm3 (4.6-6.2); White Blood Count 13.4 K/mm3 (4.4-11.0)
[2021-06-29 13:44] VITALS: BP 133/91; BP 138/89; BP 144/88; PULSE 88; PULSE 90; PULSE 91
[2021-06-29 13:51] LABS: D-Dimer Quantitative (DVT/PE) < 0.27 FEU/ug/m (0.27-0.49)
[2021-06-29 13:53] LABS: Anion Gap 5 (5-15); BUN 18 mg/dL (7-18); BUN/Creat Ratio 16.2 RATIO (10-20); Calcium,Total 9.3 mg/dL (8.5-10.1); Chloride 104 mmol/L (98-107); Creatinine, Serum 1.11 mg/dL (0.70-1.30); EST Glomerular Filtration Rate 83 mL/min (>60); Est Glom Filt Rate - Afr Amer 100 mL/min (>60); Estimated Creatinine Clearance 117.36 ml/min; Glucose 91 mg/dL (74-106); Potassium 4.1 mmol/L (3.5-5.1); Sodium Level 136 mmol/L (136-145); Troponin-I HS 5 pg/mL (3.0-78.0)
[2021-06-29 14:32] LABS: Bacteria 0 SEEN /hpf (None Seen); Mucous, Urine 0 SEEN /hpf (<or=2+); Red Blood Cells-Urine 0 SEEN /hpf (0-5); Squamous Epithelial Cells - UA 0 SEEN /hpf (0-5); White Blood Cells 0 SEEN /hpf (0-5)
[2021-06-29 14:33] LABS: Color, Urine Yellow (Yellow); Glucose, Dipstick Normal (Normal); Ketone-Dipstick 50 mg/dl (Negative); Leukocyte Esterase-Dipstick Negative /ul (Negative); Nitrite-Dipstick Negative (Negative); Occult Blood-Urine Negative /ul (Negative); Protein-Dipstick Negative (Negative); Specific Gravity, Urine 1.015 (1.002-1.030); Urine Bilirubin Dipstick Negative (Negative); Urine Clarity Clear (Clear); Urine Urobilinogen Normal (Normal)
[2021-06-29 14:36] VITALS: BP 135/78; PULSE 79; RESP 22; O2SAT 95
[2021-06-29] MEDS: Acetaminophen 500 MG Tablet 1000 MG PO (14:40)
--- NOTE | 2021-06-29 16:17 | CM.ED ---
SW Note Referral Source: Case Find Referral Reason: NO PCP PARI met with patient. He reports that his PCP retired. SW provided patient with [facility] Healthcare Providers and encouraged him to arrange for a PCP. SW remains available if needs arise. Plan: Resources provided Yojana BALLESTEROS
[2021-06-29 16:20] VITALS: BP 116/77; PULSE 88; RESP 15; O2SAT 95
[2021-06-29 16:24] VITALS: BP 116/77; PULSE 72; RESP 16; O2SAT 98
== END 2021-06-29 16:43 | disposition home or self-care (01) ==
PROVIDERS: Nurse Practitioner; Emergency Provider Emergency Medicine; Visit Provider Emergency Medicine
DX: E86.0 Dehydration (principal); R55 Syncope and collapse
CPT/HCPCS: 70450; 71045; 80048; 81001; 84484; 85025; 85379; 93005; 96360; 99285; J7030; A4216

== ENCOUNTER 2021-06-29 16:22 | Outpatient (CLI) | payer OTHER, SELFPAY | END 2021-06-29 23:59 | disposition home or self-care (01) | LOC: CVS 16:24 | PROVIDERS: Referring Provider Internal Medicine Interventional Cardiology; Visit Provider Emergency Medicine | DX: R55 Syncope and collapse (principal) | CPT/HCPCS: 93225; 93226 ==

== ENCOUNTER 2021-07-14 14:10 | Emergency (ER) | payer OTHER, SELFPAY ==
[2021-07-14 14:12] VITALS: BP 136/93; PULSE 74; RESP 18; TEMP 36.3; O2SAT 99; BMI 34.6
--- NOTE | 2021-07-14 14:44 | EKG12_ITS ---
Test Reason : SIMEON Blood Pressure : / mmHG Vent. Rate : 075 BPM Atrial Rate : 075 BPM P-R Int : 168 ms QRS Dur : 092 ms QT Int : 372 ms P-R-T Axes : 023 019 001 degrees QTc Int : 415 ms Normal sinus rhythm Normal ECG Confirmed by GISELLE KAPOOR, CLAIRE ([id number]), medical editor SHAI DERAS ([id number]) on 07/17/2021 9:18:58 AM Referred By: BB Confirmed By:CLAIRE DESAI MD
--- NOTE | 2021-07-14 14:46 | EDS_ITS ---
HPI History of Present Illness Chief Complaint: Syncope Informant: patient and spouse/S.O. Narrative Narrative: Patient had a near syncopal episode today and possibly 2. This patient is overall healthy. He does have a history of bicuspid aortic valve. This was found when he was in about fifth grade. He does not usually have syncope. He has not had any chest pain back pain tearing ripping or discomfort with these episodes. He was seen here about 2 weeks ago for this. He has followed up with Dr. Oliveros. He has a repeat cardiac echo scheduled for this coming week as it has been 1 year since his last one. He did have a Holter monitor placed here. Per the he had one episode in the middle the night where they were told he had a 7-second pause but no other abnormalities. He is pending evaluation by electrophysiology. Today the patient states that he was getting food for his children. He was sitting at a table. He states he just kind of woke up and became aware that he might of had a period of decreased awareness. Per their 4-year-old child he did not fall or have any strange activity. Shortly after this he was standing talking to his . He got a glazed over appearance and she thought he was going to fall. She pushed him into a wall so she could hold him up. He then came around slowly. He felt foggy. But he feels fine and back to normal at this time. He has not been ill recently. No fevers or chills. Both of these episodes have occurred within 6 to 12 hours of cardiovascular activity but that activity had cause no symptoms. Patient was told that he might have been dehydrated before because he had had the physical activity and was on the keto diet. He is off that diet and has been drinking a lot more fluids. Nothing specifically makes his symptoms better or worse. Also, this patient had presumed COVID in mid to end of March this year. His and daughters had tested positive COVID and he had the same symptoms. But he had no further problems until the episode of syncope 2 weeks ago. It is not clear if these are associated. [facility] Medical History (Updated 07/14/21 @ 16:[address] Ashok Garcia MD) Bicuspid aortic valve Diarrhea Diarrhea Sinus pause Thoracic aortic aneurysm without rupture Home Medications NK 03/29/19 [History Last Taken Unknown] Allergy/AdvReac Type Severity Reaction Status Date / Time No Known Allergies Allergy Verified 07/14/21 14:11 Family History Grandfather Myocardial infarction Surgical History History of adenoidectomy History of tympanostomy tube placement Social History Smoking Status: Never smoker alcohol intake: never substance use type: does not use caffeine: Yes Type: carbonated beverages Number of servings: 4 ROS ROS ED Constitutional Constitutional ED: Denies chills or fever(s) Eyes Eyes: Denies blurry vision or change in vision ENT ENT ED: Denies rhinorrhea Cardiovascular Cardiovascular: Reports other Details: See history of present illness. Patient does not recall any abnormal heartbeats that he felt. ; Denies chest pain, palpitations or racing heartbeat Respiratory/Chest Respiratory/Chest: Denies cough or dyspnea Gastrointestinal Gastrointestinal: Denies diarrhea, nausea or vomiting Musculoskeletal Musculoskeletal: Denies back pain, myalgias or neck pain Integumentary Denies rash Neurologic Neurologic: Denies headache(s), paresthesias or weakness Endocrine Endocrinology: Denies polydipsia or polyuria Allergic/Immunologic Allergic/Immunologic ED: Denies mouth swelling or urticaria EXAM Physical Exam Const Vital Signs: 07/14/21 14:12 07/14/21 14:30 07/14/21 14:51 Temperature 97.4 F L Temperature Source Temporal Pulse Rate 74 Pulse Rate [Lying] 73 Pulse Rate [Sitting (for 1 minute prior to obtaining)] 77 Pulse Rate [Standing (for 1 minute prior to obtaining)] 76 Respiratory Rate 18 Respiratory Effort Normal Non-Labored Respiratory Pattern Normal Blood Pressure 136/93 H Blood Pressure [Lying] 128/79 H Blood Pressure [Sitting (for 1 minute prior to obtaining)] 133/92 H Blood Pressure [Standing (for 1 minute prior to obtaining)] 119/85 H Blood Pressure Mean 107 Blood Pressure Mean [Lying] 95 Blood Pressure Mean [Sitting (for 1 minute prior to obtaining)] 105 Blood Pressure Mean [Standing (for 1 minute prior to obtaining)] 96 Pulse Ox 99 Oxygen Delivery Method Room Air Positive well nourished and well developed General Appearance ED: well developed and NAD; Negative for cyanotic or diapho retic HEENT Reports moist mucous membranes Negative for trauma Eyes EOMs intact bilaterally Neck no JVD Chest Wall inspection of chest normal Resp normal respiratory effort and clear to auscultation bilaterally Effort and Inspection: Negative for pain with movement Auscultation: Negative for rales, rhonchi or wheezes Cardio regular rate and regular rhythm Rate: other Other Details: Heart rate is running about 75 on the monitor. It looks quite regular. I see no pauses or ectopy. Peripheral pulses are equal and normal. GI normal to inspection, nondistended, normoactive bowel sounds and non-tender Palpation: soft Back/Spine no CVA tenderness Extremity normal to inspection General Extremety ED: Negative for edema or tenderness General Extremity: Negative for edema Neuro oriented x3 Sensorium / Orientation: alert Psych mental status grossly normal Skin no rashes or lesions noted MDM MDM MDM Narrative Medical decision making narrative: Patient CBC shows no acute abnormality. Electrolytes are normal including phosphorus magnesium. Troponin is negative. Calcium is minimally low at 8.4 but this would not cause a symptoms. I have now added prolactin and lactate. Patient evidently had an episode here where he stared into space and seemed pale and was not really responsive. His heart rate dropped to the upper 40s or 50s at this time. But her blood pressure could not be cycled until later and was then normal. He seemed to come out of it and was awake and talking. I went in to talk to him and his . He was able to interact. He did not recall the episode. The unique thing is that he did not recall me coming in that second time when I went back later in the visit again. There was no seizure or tonic- clonic type activity. However, I would not think a heart rate of 50 would cause such an episode. It certainly would be unlikely to cause a prolonged period of unawareness or decreased awareness when his heart rate and blood pressure was normal. This brings up the question if he is having recurrent absence type seizures. Since this is his second visit to the ED and he has had at least 3 of these episodes today I am uncomfortable sending him home at this time. This seems to be accelerating. I did discuss the case with Valerie Hastings. I discussed case with John Maynard who is in the clinical decision/observation type unit. Dr. Leon is excepting the patient. Lab Data Attestation: I reviewed the patient's lab results. Labs: Laboratory Results - last 24 hr 07/14/21 07/14/21 14:30 14:30 WBC 8.2 RBC 4.89 Hgb 14.4 Hct 42.3 MCV 86.5 MCH 29.4 MCHC 34.0 RDW Std Deviation 41.3 RDW Coeff of Edward 13.2 Plt Count 334 MPV 9.3 Immature Gran % (Auto) 0.200 Neut % (Auto) 54.1 Lymph % (Auto) 32.2 [place] % (Auto) 11.0 H Eos % (Auto) 2.0 Baso % (Auto) 0.5 Absolute Neuts (auto) 4.4 Absolute Lymphs (auto) 2.64 Nucleated RBC % 0 Sodium 136 Potassium 3.7 Chloride 104 Carbon Dioxide 28.0 Anion Gap 4 L BUN 16 Creatinine 1.05 Estim Creat Clear Calc 124.07 Est GFR (MDRD) Af Amer 107 Est GFR (MDRD) Non-Af 88 BUN/Creatinine Ratio 15.2 Glucose 113 H Calcium 8.4 L Phosphorus 2.5 Magnesium 1.8 Troponin I High Sens < 3 L EKG Initial EKG: Comments: EKG done for syncope read by me shows a normal sinus rhythm with overall rate of 75. No ventricular ectopy. No acute ST elevation or dep ression. WA interval, QRS duration and QTc are normal. Discharge Plan Triage Chief Complaint: Syncope ED Provider: Ashok Garcia Dx/Rx/DC Orders Clinical Impression: Episode of transient neurologic symptoms, Bradycardia, sinus Prescriptions: No Action NK RF: 0 Primary Care Provider: Yo Flor Referrals: Yo Flor DO [Primary Care Provider] - Disposition Disposition: Acute Care Hospital Discharge Location: [facility]
[2021-07-14 14:51] VITALS: BP 119/85; BP 128/79; BP 133/92; PULSE 73; PULSE 76; PULSE 77
[2021-07-14 14:54] LABS: Absolute Lymphocyte Count 2.64 X10^3/uL (0.83-4.51); Absolute Neutrophil Count 4.4 X10^3/uL (2.0-7.7); Basophil# 0.04 X10^3/uL; Basophil% 0.5 % (0-1); Eosinophil# 0.16 X10^3/uL; Hematocrit 42.3 % (40-54); Hemoglobin 14.4 g/dL (13.0-16.5); Lymphocyte # 2.64 X10^3/ul (0.83-4.51); Lymphocyte % 32.2 % (19-41); Mean Corpuscular Hgb 29.4 pg (27.0-32.0); Mean Corpuscular Volume 86.5 fL (80-94); Mean Platelet Vol. 9.3 fl (6.2-12.0); NRBC Flagged by Analyzer 0 % (0-5); Neutrophil # 4.43 X10^3/uL (2.7-7.7); Neutrophil % 54.1 % (47-70); Platelet Count 334 K/mm3 (150-450); RBC Distribution Width CV 13.2 % (11.6-14.6); RBC Distribution Width SD 41.3 fl (35.1-43.9); Red Blood Count 4.89 M/mm3 (4.6-6.2); White Blood Count 8.2 K/mm3 (4.4-11.0)
--- NOTE | 2021-07-14 15:05 | ED.RN ---
Addendum entered by Teresa Mercedes 07/14/21 15:14: lasting appx a minute, came around slowly and started to verbally respond. vs stable. does not remember what happened. Original Note: pt had another episode. staring off. not responding verbally or to commands. hr in 50's pulse ox reading upper 80's not obtaining fluent waveform.
[2021-07-14 15:07] LABS: Anion Gap 4 (5-15); BUN 16 mg/dL (7-18); BUN/Creat Ratio 15.2 RATIO (10-20); Calcium,Total 8.4 mg/dL (8.5-10.1); Chloride 104 mmol/L (98-107); Creatinine, Serum 1.05 mg/dL (0.70-1.30); EST Glomerular Filtration Rate 88 mL/min (>60); Est Glom Filt Rate - Afr Amer 107 mL/min (>60); Estimated Creatinine Clearance 124.07 ml/min; Glucose 113 mg/dL (74-106); Magnesium 1.8 mg/dL (1.6-2.6); Phosphorus 2.5 mg/dL (2.5-4.9); Potassium 3.7 mmol/L (3.5-5.1); Sodium Level 136 mmol/L (136-145); Troponin-I HS < 3 pg/mL (3.0-78.0)
[2021-07-14 16:17] VITALS: BP 136/85; PULSE 68; RESP 16; O2SAT 98
[2021-07-14 16:37] LABS: Lactic Acid 1.1 mmol/L (0.4-1.9)
[2021-07-14 16:38] LABS: Prolactin 10.3 ng/mL
[2021-07-14 17:57] VITALS: BP 113/87; PULSE 74; RESP 20; TEMP 36.6; O2SAT 99
[2021-07-14 18:59] VITALS: BP 153/71; PULSE 74; RESP 16; O2SAT 98
== END 2021-07-14 18:59 | disposition short-term general hospital (02) ==
PROVIDERS: Emergency Provider Emergency Medicine; PCP Student in an Organized Health Care Education/Training Program; Visit Provider Emergency Medicine
DX: R55 Syncope and collapse (principal); R00.1 Bradycardia, unspecified
CPT/HCPCS: 80048; 83605; 83735; 84100; 84146; 84484; 85025; 87811; 93005; 99285; A4216

== ENCOUNTER → 2022-05-28 | Outpatient (CLI) | payer BC, OTHER, SELFPAY ==
--- NOTE | 2022-05-28 12:51 | ECHOD_ITS ---
Reason For Study: BICUSPID AV Procedure This was a 2D Doppler, Color Flow transthoracic echocardiogram. Exam performed in department. Left Ventricle Normal LV size. Left ventricular systolic function is normal. The estimated ejection fraction is 60 %. No evidence for diastolic dysfunction. No regional wall motion abnormalities noted. Right Ventricle Normal RV size. Normal systolic function. Atria Normal left atrium. Normal right atrium. No doppler evidence for ASD. Bubble contrast study negative for right to left interatrial shunt. Mitral Valve There is no mitral annular calcification. Normal mitral valve. Trivial mitral valve insufficiency. Tricuspid Valve Normal tricuspid valve. Trivial tricuspid valve insufficiency. Unable to estimate RV systolic pressure due to insufficient tricuspid regurgitant envelope. Aortic Valve Bicuspid aortic valve. Mild diffuse aortic valve thickening. Pulmonic Valve The pulmonic valve is not well visualized. Great Vessels Mildly dilated aortic root. Pericardium/Pleural No pericardial effusion. Medication 22 gauge I.V. with prn adaptor inserted into right arm. Performed a rapid injection of agitated mix of 9 cc saline and 1cc air to assess for atrial septal defect. MMode/2D Measurements & Calculations LVIDd: 4.9 cm IVSd: 0.88 cm LVOT diam: 2.3 cm LVIDs: 3.3 cm LVPWd: 0.84 cm RVDd: 4.1 cm FS: 31.9 % LVOT area: 4.3 cm2 Ao root diam: 4.2 cm LAV(MOD-sp4): 63.8 ml LVAd ap4: 29.5 cm2 LVLd ap4: 9.4 cm EDV(MOD-sp4): 83.8 ml EDV(sp4-el): 78.6 ml LVAs ap4: 20.6 cm2 LVLs ap4: 7.7 cm ESV(MOD-sp4): 51.7 ml ESV(sp4-el): 46.6 ml EF(MOD-sp4): 38.4 % EF(sp4-el): 40.7 % SV(MOD-sp4): 32.2 ml SV(sp4-el): 32.0 ml LA A4 area: 22.8 cm2 LA dimension(2D): 3.9 cm RA A4 area: 16.4 cm2 Time Measurements MV dec time: 0.27 sec Doppler Measurements & Calculations MV E max gamaliel: 53.8 cm/sec Lat Peak E' Gamaliel: 16.1 cm/sec Med Peak E' Gamaliel: 10.3 cm/sec MV A max gamaliel: 51.8 cm/sec E/E' lat: 3.3 E/E' med: 5.2 MV E/A: 1.0 MV V2 max: 60.6 cm/sec MV dec slope: 219.2 cm/sec2 Ao V2 max: 152.1 cm/sec MV max P.5 mmHg Ao max P.3 mmHg MV V2 mean: 45.3 cm/sec Ao V2 mean: 112.9 cm/sec MV mean P.88 mmHg Ao mean P.7 mmHg MV V2 VTI: 20.7 cm Ao V2 VTI: 32.9 cm MVA(VTI): 5.2 cm2 AV (velocity ratio): 0.77 LEONEL(I,D): 3.3 cm2 LEONEL(V,D): 3.1 cm2 LV V1 max: 111.1 cm/sec SV(LVOT): 107.5 ml PA V2 max: 114.6 cm/sec LV V1 max P.9 mmHg PA max PG (full): 1.3 mmHg LV V1 mean P.7 mmHg PA V2 mean: 75.8 cm/sec LV V1 mean: 76.2 cm/sec PA mean PG (full): 0.63 mmHg LV V1 VTI: 25.3 cm ECHO/Echo Complete Interpretation Summary Left ventricular systolic function is normal. The estimated ejection fraction is 60 %. Trivial mitral valve insufficiency. Trivial tricuspid valve insufficiency. Bicuspid aortic valve. Mild diffuse aortic valve thickening. Mildly dilated aortic root. Unable to estimate RV systolic pressure due to insufficient tricuspid regurgita nt envelope. No evidence for diastolic dysfunction. Ordering Physician: Kirit Oliveros Referring Physician: REYES RAZO Performed By: Lucero Her RCS
== END | disposition home or self-care (01) ==
LOC: CVS 12:50
PROVIDERS: PCP Student in an Organized Health Care Education/Training Program; Visit Provider Internal Medicine Cardiovascular Disease
DX: Q23.1 Congenital insufficiency of aortic valve (principal)
CPT/HCPCS: 93306

== ENCOUNTER → 2024-01-12 | Outpatient (CLI) | payer OTHER, SELFPAY ==
--- NOTE | 2024-01-12 09:54 | ECHOD_ITS ---
Reason For Study: BICUSPID ALEC Procedure This was a 2D Doppler, Color Flow transthoracic echocardiogram. Exam performed in department. Left Ventricle Normal size and thickness. The left ventricular ejection fraction is 65 %. No evidence for diastolic dysfunction. Right Ventricle Normal right ventricle. Atria The left and right atria are normal. Mitral Valve Trivial mitral valve insufficiency. Tricuspid Valve Trivial tricuspid valve insufficiency. Unable to estimate RV systolic pressure due to insufficient tricuspid regurgitant envelope. Aortic Valve Bicuspid aortic valve. There is no aortic stenosis. No aortic valve insufficiency. Pulmonic Valve The pulmonic valve is not well visualized. Great Vessels Moderately dilated ascending aorta. Pericardium/Pleural No pericardial effusion. MMode/2D Measurements & Calculations LVIDd: 4.5 cm IVSd: 1.1 cm LVOT diam: 2.0 cm LVIDs: 2.3 cm LVPWd: 1.1 cm LVOT area: 3.0 cm2 RVDd: 3.9 cm FS: 48.1 % Ao root diam: 4.9 cm LAV(MOD-bp): 49.7 ml LVAd ap4: 29.7 cm2 LAV(MOD-bp) Indexed: 19.7 ml/m2 LVLd ap4: 9.0 cm LAV(MOD-sp2): 52.5 ml EDV(MOD-sp4): 83.7 ml LAV(MOD-sp4): 41.0 ml EDV(sp4-el): 83.3 ml LVAs ap4: 16.9 cm2 LVLs ap4: 7.3 cm ESV(MOD-sp4): 36.0 ml ESV(sp4-el): 33.2 ml EF(MOD-sp4): 57.0 % EF(sp4-el): 60.1 % SV(MOD-sp4): 47.7 ml SV(sp4-el): 50.0 ml LA A4 area: 17.7 cm2 LA dimension(2D): 4.1 cm RA A4 area: 16.8 cm2 TAPSE: 2.7 cm Time Measurements MV dec time: 0.25 sec Doppler Measurements & Calculations MV E max gamaliel: 55.6 cm/sec Lat Peak E' Gamaliel: 15.2 cm/sec Med Peak E' Gamaliel: 7.7 cm/sec MV A max gamaliel: 57.6 cm/sec E/E' lat: 3.7 E/E' med: 7.2 MV E/A: 0.96 MV V2 max: 67.3 cm/sec Ao V2 max: 135.1 cm/sec MV max P.8 mmHg MV dec slope: 246.6 cm/sec2 Ao max P.3 mmHg MV V2 mean: 48.0 cm/sec Ao V2 mean: 94.0 cm/sec MV mean P.98 mmHg Ao mean P.0 mmHg MV V2 VTI: 20.0 cm Ao V2 VTI: 29.6 cm AV (velocity ratio): 0.88 MVA(VTI): 3.9 cm2 LEONEL(I,D): 2.7 cm2 LEONEL(V,D): 2.4 cm2 LV V1 max: 105.5 cm/sec SV(LVOT): 78.8 ml PA V2 max: 95.6 cm/sec LV V1 max P.5 mmHg PA V2 mean: 65.8 cm/sec LV V1 mean P.4 mmHg LV V1 mean: 71.0 cm/sec LV V1 VTI: 26.0 cm ECHO/Echo Complete Interpretation Summary The left ventricular ejection fraction is 65 %. No evidence for diastolic dysfunction. Bicuspid aortic valve without evidence of stenosis or regurgitation. Moderately dilated ascending aorta at 4.[address] of chest for further evaluation. Ordering Physician: Yo Flor Referring Physician: Yo Flor Performed By: Lucero Her RCS
== END | disposition home or self-care (01) ==
LOC: CVS 09:53
PROVIDERS: PCP Student in an Organized Health Care Education/Training Program; Referring Provider Student in an Organized Health Care Education/Training Program; Visit Provider Student in an Organized Health Care Education/Training Program
DX: Q23.1 Congenital insufficiency of aortic valve (principal)
CPT/HCPCS: 93306